=== PATIENT | male | born 1970 | race Caucasian/White ===

== ENCOUNTER 2022-05-19 05:53 | Day surgery (SDC) | payer OTHER ==
[2022-05-15 09:38] VITALS: BMI 26.8
[2022-05-19] MEDS ORDERED: Heparin 10,000 UNITS/ 10 ML VIAL ONE (06:11)
[2022-05-19] MEDS ORDERED: Lidocaine 1% (PF) 30 ML VIAL ONE (06:11)
[2022-05-19 06:38] LABS: #Basophils 0.1 thou/uL (0.0-0.2); #Eosinphils 0.4 thou/uL (0.0-0.7); #Lymphocytes 2.6 thou/uL (1.20-3.40); #Neutrophils 4.8 thou/uL (1.40-6.50); %Basophils 0.7 % (0.0-1.0); %Lymphocytes 28.7 % (21.0-51.0); %Monocytes 11.3 % (0.0-10.0); %Neutrophils 54.2 % (42.0-75.0); Hemoglobin 12.9 g/dL (14.0-18.0); Mean Corpuscular HGB CONC 33.5 g/dL (32.0-36.0); Mean Corpuscular Hemoglobin 32.4 pg (27.0-31.0); Mean Corpuscular Volume 96.7 fl (78.0-98.0); Mean Platelet Volume 6.3 fL (7.4-10.4); Platelet Count 292 10x3/uL (130-400); RBC Distribution Width 12.7 % (11.5-14.5); Red Blood Cell (RBC) Count 3.98 mill/uL (4.70-6.10); White Blood Cell (WBC) Count 8.9 10x3/uL (4.8-10.8)
[2022-05-19 06:51] LABS: Anion Gap 13 mmol/L (10-20); BUN (Urea Nitrogen) 16 mg/dL (8.4-25.7); Calc. Creatinine Clearance 108 mL/min (70-130); Calcium 9.6 mg/dL (7.8-10.44); Carbon Dioxide 25 mmol/L (22-29); Chloride 100 mmol/L (98-107); Estimated GFR 84; Glucose 125 mg/dL (70-105); Potassium 4.2 mmol/L (3.5-5.1); Sodium 134 mmol/L (136-145)
[2022-05-19] MEDS ORDERED: Midazolam HCl 2 mg/2 ml Vial ONE (07:02)
[2022-05-19] MEDS ORDERED: fentaNYL 50 mcg/mL 1 mL Vial ONE ×3 (07:02→09:38)
[2022-05-19] MEDS ORDERED: hydrALAZINE 20 MG/ML VIAL ONE (07:42)
[2022-05-19] MEDS ORDERED: HYDROcodone/Acetaminophen 5/325 mg Tablet ONE (12:00)
== END 2022-05-19 12:30 | disposition home or self-care (01) ==
LOC: SDC 05:53
PROVIDERS: ATTEND Thoracic Surgery (Cardiothoracic Vascular Surgery)
PROC: B41D1ZZ Fluoroscopy of Aorta and Bilateral Lower Extremity Arteries using Low Osmolar Contrast (ICD-10-PCS; principal; 2022-05-19)
DX: I70.8 Atherosclerosis of other arteries (principal); I70.202 Unspecified atherosclerosis of native arteries of extremities, left leg; I25.10 Atherosclerotic heart disease of native coronary artery without angina pectoris; I10 Essential (primary) hypertension; E78.5 Hyperlipidemia, unspecified; Z87.891 Personal history of nicotine dependence; Z88.0 Allergy status to penicillin; Z79.1 Long term (current) use of non-steroidal anti-inflammatories (NSAID); Z79.82 Long term (current) use of aspirin; Z79.899 Other long term (current) drug therapy
CPT/HCPCS: 36140; 36246; 36415; 75716; 75736; 75774; 80048; 85025; 99152; C1769; C1894; J0360; J1644; J2001; J2250; J3010

== ENCOUNTER 2022-09-25 07:09 | Day surgery (SDC) | payer OTHER ==
[2022-09-25 09:51] LABS: CSF Source CSF; Clarity Clear (Clear); Tube # 4
[2022-09-25 09:52] LABS: CSF RBC Count - Manual 0 /cu.mm (None Seen); CSF WBC/NonHematics Count-Man 0 /cu.mm (0-5)
[2022-09-25 10:12] VITALS: BP 100/65
[2022-09-25 10:18] LABS: CSF, Glucose 75 mg/dl (40-70); CSF, Protein 93 mg/dL (15-40)
[2022-09-29 17:14] LABS: Myelin Basic Protein, CSF 5.5 ng/mL (0.0-4.7)
[2022-09-29 18:13] LABS: VDRL, CSF Non Reactive (Non Rea:<1:1)
[2022-09-30 16:14] LABS: CSF IgG Index 0.5 (0.0-0.7); CSF IgG Synthesis Rate 2.1 mg/day (-9.9 TO +3.3); IgG/Alb CSF 0.11 (0.00-0.25)
== END 2022-09-25 10:00 | disposition home or self-care (01) ==
LOC: RAD 07:09
PROVIDERS: ATTEND Psychiatry & Neurology Neurology
DX: G37.9 Demyelinating disease of central nervous system, unspecified (principal); G56.02 Carpal tunnel syndrome, left upper limb; I10 Essential (primary) hypertension; E78.5 Hyperlipidemia, unspecified; I73.9 Peripheral vascular disease, unspecified; Z87.891 Personal history of nicotine dependence; Z79.899 Other long term (current) drug therapy; Z79.82 Long term (current) use of aspirin; Z86.73 Personal history of transient ischemic attack (TIA), and cerebral infarction without residual deficits; Z88.0 Allergy status to penicillin
CPT/HCPCS: 62270; 82040; 82042; 82784; 82945; 83873; 83916; 84157; 86592; 86612; 86635; 86698; 87205; 87529; 87899; 89051

== ENCOUNTER 2023-04-07 11:46 | Observation (INO) | payer OTHER ==
[2023-04-07 12:43] LABS: #Basophils 0.1 thou/uL (0.0-0.2); #Eosinphils 0.2 thou/uL (0.0-0.7); #Monocytes 0.7 thou/uL (0.11-0.59); #Neutrophils 4.6 thou/uL (1.40-6.50); %Basophils 0.9 % (0.0-1.0); %Eosinophils 2.9 % (0.0-10.0); %Lymphocytes 18.6 % (21.0-51.0); %Monocytes 10.4 % (0.0-10.0); %Neutrophils 66.9 % (42.0-75.0); Hemoglobin 13.3 g/dL (14.0-18.0); Mean Corpuscular Hemoglobin 32.9 pg (27.0-31.0); Mean Corpuscular Volume 94.1 fl (78.0-98.0); Mean Platelet Volume 8.9 fL (7.4-10.4); Platelet Count 234 10x3/uL (130-400); RBC Distribution Width 12.4 % (11.5-14.5); Red Blood Cell (RBC) Count 4.04 mill/uL (4.70-6.10); White Blood Cell (WBC) Count 6.8 10x3/uL (4.8-10.8)
[2023-04-07 13:02] LABS: ALT (SGPT) 32 U/L (8-55); AST (SGOT) 25 U/L (5-34); Albumin 5.1 g/dL (3.5-5.0); Alkaline Phosphatase 121 U/L (40-110); Anion Gap 14 mmol/L (10-20); BUN (Urea Nitrogen) 22 mg/dL (8.4-25.7); Bilirubin, Total 0.8 mg/dL (0.2-1.2); Calc. Creatinine Clearance 0 mL/min (70-130); Calcium 10.2 mg/dL (7.8-10.44); Carbon Dioxide 24 mmol/L (22-29); Chloride 100 mmol/L (98-107); Estimated GFR 78; Globulin 3.2 g/dL (2.4-3.5); Glucose 91 mg/dL (70-105); Potassium 4.2 mmol/L (3.5-5.1); Protein, Total 8.3 g/dL (6.0-8.3); Sodium 134 mmol/L (136-145)
[2023-04-07] MEDS ORDERED: cefTRIAXone (ROCEPHIN) 1 GM VIAL ONE (13:46)
[2023-04-07] MEDS ORDERED: Pantoprazole 40 MG VIAL ONE (13:46)
[2023-04-07] MEDS ORDERED: Sodium Chloride 0.9% 100 ML ONE (13:47)
[2023-04-07] MEDS ORDERED: Octreotide Acetate 1,250 MCG in Sodium Chloride 0.9% 250 ML 250 ML IVPB SCH (14:15)
[2023-04-07] MEDS ORDERED: Ondansetron ODT 4 MG TAB PO PRN (16:27)
[2023-04-07] MEDS ORDERED: Dextrose 5% in Water 1,000 ML IV PRN (16:27)
[2023-04-07] MEDS ORDERED: Dextrose 50% Abboject 50 ML SYRINGE SLOW IVP PRN (16:27)
[2023-04-07] MEDS ORDERED: Insulin Regular 300 UNITS/3 ML VIAL SC PRN (16:27)
[2023-04-07] MEDS ORDERED: Glucagon 1 MG/ML KIT IM PRN (16:27)
[2023-04-07 17:31] VITALS: BMI 30.9
[2023-04-07 17:58] LABS: Hemoglobin A1c 5.7 % (4.0-6.0)
[2023-04-07] MEDS: hydrALAZINE 20 MG/ML VIAL SLOW IVP PRN (18:12)
[2023-04-07] MEDS: Gabapentin 300 MG CAP PO SCH (19:58)
[2023-04-07] MEDS: tiZANidine HCl 4 MG TAB PO SCH (20:41)
[2023-04-07] MEDS ORDERED: Meloxicam 7.5 MG TAB PO SCH (21:00)
[2023-04-08] MEDS: Pantoprazole 80 MG, Admixture Fee 1 EACH in Sodium Chloride 0.9% 100 ML IVPB SCH (00:59)
[2023-04-08 04:23] LABS: #Basophils 0.1 thou/uL (0.0-0.2); #Eosinphils 0.3 thou/uL (0.0-0.7); #Monocytes 0.8 thou/uL (0.11-0.59); #Neutrophils 3.6 thou/uL (1.40-6.50); %Eosinophils 4.7 % (0.0-10.0); %Lymphocytes 24.2 % (21.0-51.0); %Monocytes 12.1 % (0.0-10.0); %Neutrophils 57.7 % (42.0-75.0); Hematocrit 30.5 % (42.0-52.0); Hemoglobin 10.6 g/dL (14.0-18.0); Mean Corpuscular HGB CONC 34.8 g/dL (32.0-36.0); Mean Corpuscular Hemoglobin 32.7 pg (27.0-31.0); Mean Corpuscular Volume 94.1 fl (78.0-98.0); Platelet Count 207 10x3/uL (130-400); RBC Distribution Width 12.4 % (11.5-14.5); Red Blood Cell (RBC) Count 3.24 mill/uL (4.70-6.10); White Blood Cell (WBC) Count 6.2 10x3/uL (4.8-10.8)
[2023-04-08] MEDS: Atorvastatin Calcium 40 MG TAB PO SCH (08:35)
[2023-04-08] MEDS: Lisinopril 20 MG TAB PO SCH (08:36)
[2023-04-08 12:42] VITALS: BP 94/56; TEMP 97.3
[2023-04-08] MEDS: cefTRIAXone\\ROCEPHIN 1 GM in Sodium Chloride 0.9% 100 ML IVPB SCH (14:49)
[2023-04-10] MEDS ORDERED: FLU VACC QS2023-24(6MOS UP)/PF 60 MCG/0.5 ML SYRINGE IM ONE (09:00)
== END 2023-04-08 16:30 | disposition home or self-care (01) ==
LOC: ERS 11:46 → T4-B 16:03
PROVIDERS: ADMIT Internal Medicine; ATTEND Family Medicine
DX: K92.1 Melena (principal); K59.09 Other constipation; E11.42 Type 2 diabetes mellitus with diabetic polyneuropathy; E78.5 Hyperlipidemia, unspecified; I10 Essential (primary) hypertension; R53.1 Weakness; Z88.0 Allergy status to penicillin; Z79.84 Long term (current) use of oral hypoglycemic drugs; Z79.899 Other long term (current) drug therapy; Z79.82 Long term (current) use of aspirin
CPT/HCPCS: 36415; 36416; 71045; 74177; 80053; 83036; 85025; 86850; 86900; 86901; 93005; 96374; 96375; 96376; C9113; G0378; J0360; J0696; J2354; J3490; J7050

== ENCOUNTER 2024-11-21 06:33 | Day surgery (SDC) | payer MEDICAID ==
[2024-11-18 09:38] VITALS: BMI 30.9
[2024-11-21] MEDS ORDERED: PROPOFOL 20 ML ONE ×2 (08:15→08:36)
[2024-11-21] MEDS ORDERED: Lidocaine 1% PF 5 ML VIAL ONE (08:37)
== END 2024-11-21 10:20 | disposition home or self-care (01) ==
LOC: SDC 06:33
PROVIDERS: ATTEND Internal Medicine
DX: D12.5 Benign neoplasm of sigmoid colon (principal); K63.3 Ulcer of intestine; K64.8 Other hemorrhoids; K64.4 Residual hemorrhoidal skin tags; E11.9 Type 2 diabetes mellitus without complications; E78.00 Pure hypercholesterolemia, unspecified; F17.200 Nicotine dependence, unspecified, uncomplicated; Z86.0100 Personal history of colon polyps, unspecified; Z98.49 Cataract extraction status, unspecified eye; Z90.49 Acquired absence of other specified parts of digestive tract; Z98.890 Other specified postprocedural states; Z88.0 Allergy status to penicillin; Z79.84 Long term (current) use of oral hypoglycemic drugs; Z79.899 Other long term (current) drug therapy
CPT/HCPCS: 88305; J2704